=== PATIENT | female | born 1970 | race Caucasian/White ===

== ENCOUNTER 2019-11-20 11:29 | Outpatient (CLI) | payer OTHER, SELFPAY ==
--- NOTE | ~2019-11-20 | XR_ITS ---
XR cervical spine 4-5V DATE: 11/20/2019 11:56 INDICATION: Neck pain TECHNIQUE: AP, open-mouth, lateral, swimmer views COMPARISON: 08/08/2017 cervical spine FINDINGS: There is reversal of cervical curvature. C1 and C2 are normally aligned and the odontoid pr ocess is intact. There is moderate degenerative disc disease and mild retrolisthesis at C5-6. There is severe degenerative disc disease at C6-7. No fracture or dislocation or locked facet or prevertebral soft tissue swelling. IMPRESSION: Reversal of cervical curvature Moderate degenerative disease and mild retrolisthesis at C5-6 Severe degenerative disc disease at C6-7 Reviewed, dictated and finalized at location B.
== END 2019-11-20 11:30 | disposition home or self-care (01) ==
PROVIDERS: PCP Physician Assistant
DX: M54.2 Cervicalgia (principal); M53.82 Other specified dorsopathies, cervical region; M50.322 Other cervical disc degeneration at C5-C6 level; M50.323 Other cervical disc degeneration at C6-C7 level
CPT/HCPCS: 72050

== ENCOUNTER 2020-03-10 14:18 | Emergency (ER) | payer OTHER, SELFPAY ==
[2020-03-10 14:32] VITALS: BP 120/57; PULSE 99; RESP 18; TEMP 36.7; O2SAT 99
[2020-03-10] MEDS: FLUORESCEIN SOD 1 MG/STRIP (16:11)
[2020-03-10] MEDS: DACRIOSE EYE IRRIGATION 118 ML BOTTLE (16:11)
[2020-03-10] MEDS: TETRACAINE HCL 0.5% OPHTH SOLN 4 ML BTL 1 DROP (16:11)
--- NOTE | 2020-03-10 16:38 | ED.EYEPROB ---
HPI - Eye Problem General Chief complaint: Eye Problems Stated complaint: left eye pain Time Seen by Provider: 03/10/20 15:59 Source: patient History of Present Illness HPI Narrative: 49-year-old female presents to emergency department for left eye pain that she noticed this morning. Patient states he has never had this pain before in the past. She has not taken anything for the pain so far. Patient does not wear contacts, however wears reading glasses. Patient states like there is something in her eye. No fever or chills. No runny or congested nose. No hearing loss or change. No chest pain or shortness of breath. Related Data Allergies Allergy/AdvReac Type Severity Reaction Status Date / Time No Known Allergies Allergy Unverified 10/23/18 15:39 Review of Systems Review of Systems: Narrative: CONSTITUTIONAL: Denies fever, chills, or sweats. EYES: Reports left eye pain, and blurry vision. ENT: Denies rhinorrhea, congestion, sore throat, or otalgia. CARDIOVASCULAR: Denies chest pain, palpitations, or edema. RESPIRATORY: Denies cough or dyspnea. GASTROINTESTINAL: Denies abdominal pain, nausea, vomiting, or diarrhea. GENITOURINARY: Denies dysuria or hematuria. SKIN: Denies rash or itching. MUSCULOSKELETAL: Denies back pain, joint pain, or myalgia. NEUROLOGIC: Denies headache, numbness, dizziness, or weakness. PSYCHIATRIC: Denies anxiety or depression. All systems reviewed & are unremarkable except as noted in HPI and below (ROS) PMFSH Family History Family History Mother Hypertension Acute myocardial infarction Family history of cardiovascular disease Father Family history of lymphoma Grandparent Family history of throat cancer Acute myocardial infarction Family history of malignant neoplasm of ovary Other Family history of malignant neoplasm Social History Social History Smoking status: Former smoker Smoking end date: 05/15/10 Alcohol intake: current Exam Narrative: Exam Narrative: GENERAL: Well-appearing, well-nourished, and in no acute distress. HEAD: Normocephalic, atraumatic. EYES: PERRLA and EOMI. 20/20 vision of right eye, 20/25 vision of left eye ENT: Nares clear, no rhinorrhea or epistaxis. Mucous membranes moist. NECK: Supple. CHEST: Clear to auscultation. No respiratory distress. HEART: Regular rate and rhythm. No murmur heard. Normal peripheral pulses. ABDOMEN: Soft, nontender, nondistended, normal active bowel sounds. EXTREMITIES: Normal range of motion. No edema. SKIN: Warm, dry, no rash. NEURO: No focal deficits. Alert and oriented x3. PSYCH: Normal mood and affect. Eyes: Cornea: fluorescein used (Corneal abrasion at 6 o'clock position) Course Vital Signs Vital signs: Vital Signs Temperature 36.7 C 03/10/20 14:32 Pulse Rate 99 03/10/20 14:32 Respiratory Rate 18 03/10/20 14:32 Blood Pressure 120/57 L 03/10/20 14:32 Pulse Oximetry 99 03/10/20 14:32 Temperature 36.7 C 03/10/20 17:17 Pulse Rate 80 03/10/20 17:17 Respiratory Rate 18 03/10/20 17:17 Blood Pressure 124/80 03/10/20 17:17 Pulse Oximetry 99 03/10/20 17:17 MDM - Eye Problem MDM Narrative Medical decision making narrative: Tetracaine drops applied, and fluorescein dye applied to left eye. Wood's lamp used to detect corneal abrasion at 6 o'clock position. Will discharge patient with prescription for antibiotic eyedrops. Counseled patient to follow-up with her medical provider within 1 week. Return to emergency department if symptoms persist, worsen, or other concerns. Medical Records Attestation: I reviewed the patient's medical records. Discharge Plan Discharge Clinical Impression: Abrasion of cornea, left Patient Disposition: Home, Self-Care Condition: Improved Instructions: Corneal Abrasion (DC) Additional Instructions: 1. Please follow-up with your
[2020-03-10 17:17] VITALS: BP 124/80; PULSE 80; RESP 18; TEMP 36.7; O2SAT 99
== END 2020-03-10 17:18 | disposition home or self-care (01) ==
PROVIDERS: Emergency Provider Emergency Medicine; PCP Physician Assistant
DX: S05.02XA Injury of conjunctiva and corneal abrasion without foreign body, left eye, initial encounter (principal); X58.XXXA Exposure to other specified factors, initial encounter; Y93.9 Activity, unspecified
CPT/HCPCS: 99283; A9270

== ENCOUNTER 2020-11-06 10:32 | Emergency (ER) | payer OTHER, SELFPAY ==
[2020-11-06] VITALS (8 sets, daily range): BP systolic 114–155; BP diastolic 82–93; PULSE 59–79; RESP 12–74; TEMP 36.3; O2SAT 98–99
--- NOTE | ~2020-11-06 | CT_ITS ---
EXAMINATION: CT abdomen pelvis wo con DATE: 11/06/2020 12:08 INDICATION: Right flank pain TECHNIQUE: Computed tomography (CT) of the abdomen and pelvis was performed without intravenous contr ast. The dose-length product was 191.68 mGy-cm. Automated exposure control and iterative reconstructi on technique were employed. COMPARISON: CT dated 03/07/2011. FINDINGS: Lung bases are unremarkable. No significant pleural or pericardial effusion. Heart size nor mal. There is mild atherosclerosis. No lymphadenopathy. The liver, spleen, pancreas, adrenal glands and kidneys are unremarkable. Gallbladder is present. No renal/ureteral stones or hydronephrosis. No abnormal pelvic masses or fluid collections. Nonobstructi ve bowel gas pattern. IMPRESSION: 1. No acute abdominal abnormality. Reviewed, dictated and finalized at location B.
[2020-11-06 11:13] LABS: Basophils Absolute Auto 0.1 K/mm3 (0.0-0.1); Eosinophils Absolute Auto 0.1 K/mm3 (0-0.3); Eosinophils Percent Auto 1.4 % (0-4.4); Hematocrit 41.3 % (37.0-47.0); Hemoglobin 13.8 g/dL (12.0-15.0); Immature Granulocyte Absolute 0.01 K/mm3 (0.00-0.031); Immature Granulocyte Percent A 0.1 % (0-0.5); Lymphocytes Absolute Auto 2.09 K/mm3 (0.9-3.2); Lymphocytes Percent Auto 29.4 % (18.3-44.2); Mean Corpuscular HGB Conc 33.4 g/dl (32-36); Mean Corpuscular Hemoglobin 30.1 pg (26-34); Mean Corpuscular Volume 90.2 fl (80-100); Mean Platelet Volume 9.8 fl (7.4-10.4); Monocytes Absolute Auto 0.5 K/mm3 (0.1-0.6); Monocytes Percent Auto 7.2 % (2.6-8.5); Neutrophils Absolute Auto 4.3 K/mm3 (1.3-6.7); Neutrophils Percent Auto 60.9 % (45.5-73.1); Platelet Count Result 274 k/mm3 (150-375); Red Blood Count 4.58 M/mm3 (4.2-5.4); Red Cell Distribution Width 11.9 % (11.5-14.5); White Blood Count 7.1 K/mm3 (4.5-10.0)
[2020-11-06 11:19] LABS: Add Urine Microscopic? YES; Appearance Urine Clear (Clear); Bilirubin Urine 1+ (Negative); Blood Urine Negative (Negative); Calcium Oxalate Crystals Urine Many /hpf; Color Urine Yellow (Yellow); Glucose Urine UA Negative (Negative); Ketones Urine Negative (Negative); Leukocyte Esterase Ur Trace LEU/UL (Negative); Mucus Urine Few /lpf; Nitrate Urine Negative (Negative); Protein Urine 1+ mg/dL (Negative); Squamous Epithelial Cell Urine Few /hpf (Few)
[2020-11-06 11:24] LABS: Specific Grav Ur 1.051 (1.001-1.035)
[2020-11-06 11:25] LABS: Alanine Aminotransferase 16 U/L (4-35); Albumin Level 4.3 g/dL (3.5-5.1); Alkaline Phosphatase 107 U/L (38-126); Anion Gap 6 mmol/L (8-16); Aspartate Amino Transferase 36 U/L (14-36); Bilirubin,Total 0.5 mg/dL (0.2-1.3); Blood Urea Nitrogen 12 mg/dL (7-17); Calcium 9.2 mg/dL (8.4-10.2); Carbon Dioxide 25 mmol/L (22-30); Chloride 107 mmol/L (98-107); Estimated CRCL calculation 66 ml/min; Estimated Glomerular Filt Rate > 60; Glucose 108 mg/dL (65-105); Lipase 62 U/L (23-300); Potassium 4.2 mmol/L (3.4-5.0); Sodium 138 mmol/L (137-145)
--- NOTE | 2020-11-06 11:33 | ED.ABDPAIN ---
HPI - Abdominal Pain General Chief Complaint: Abdominal Pain Stated Complaint: flank pain Time Seen by Provider: 11/06/20 10:52 Source: patient Mode of arrival: wheelchair Limitations: no limitations History of Present Illness HPI narrative: Patient is a 50 year old female who presents complaining of right flank pain x 2 days, increasing pain this am. Reports nausea and vomiting. Denies diarrhea. Patient denies significant medical history. She has not taken over the counter medications for pain at this time. MD elicited complaint: flank pain Related Data Allergies Allergy/AdvReac Type Severity Reaction Status Date / Time No Known Allergies Allergy Unverified 10/23/18 15:39 Review of Systems Review of Systems: Narrative: CONSTITUTIONAL: Denies fever, chills, or sweats. EYES: Denies visual changes, redness, or discharge. ENT: Denies rhinorrhea, congestion, sore throat, or otalgia. CARDIOVASCULAR: Denies chest pain, palpitations, or edema. RESPIRATORY: Denies cough or dyspnea. GASTROINTESTINAL: Denies abdominal pain, nausea, vomiting, or diarrhea. GENITOURINARY: Reports right flank pain SKIN: Denies rash or itching. MUSCULOSKELETAL: Denies back pain, joint pain, or myalgia. NEUROLOGIC: Denies headache, numbness, dizziness, or weakness. PSYCHIATRIC: Denies anxiety or depression. PMFSH Surgical History Surgical History History of hysterectomy Family History Family History Mother Hypertension Acute myocardial infarction Family history of cardiovascular disease Father Family history of lymphoma Grandparent Family history of throat cancer Acute myocardial infarction Family history of malignant neoplasm of ovary Other Family history of malignant neoplasm Social History Social History (Updated 11/06/20 @ 11:36 by SANDEE Chaudhari) Smoking status: Former smoker Smoking end date: 05/15/10 Alcohol intake: current Alcohol use details: occasional Substance use: current Substance use type: marijuana Living arrangements: with family Comments At the time of signature, I have reviewed and agree with nursing past medical, surgical, social, and family history unless otherwise noted. Please see nursing chart for further information. There is no relevant family history pertinent to the presenting complaint. Exam Narrative: Exam Narrative: GENERAL: Well-appearing, well-nourished, and in no acute distress. HEAD: Normocephalic, atraumatic. EYES: EOMI. No redness or drainage. Conjunctiva are normal. ENT: Mucous membranes pink and moist. CHEST: No respiratory distress. Clear to auscultation. HEART: Regular rate and rhythm. No murmur appreciated. Normal peripheral pulses. GI: Soft, nontender without rebound, or guarding. No distention. : Right CVA tenderness with palpation MUSCULOSKELETAL: No bony tenderness. EXTREMITIES: Normal range of motion. No edema. SKIN: Warm, dry, no rash. NEURO: No focal deficits. Alert and oriented x3. Gait steady. PSYCH: Normal affect. No signs of depression or anxiety. Course Vital Signs Vital signs: Vital Signs Pulse Rate 60 11/06/20 10:40 Respiratory Rate 12 11/06/20 10:40 Blood Pressure 125/82 11/06/20 10:40 Pulse Oximetry 98 11/06/20 10:40 Temperature 36.3 C L 11/06/20 10:56 Pulse Rate 79 11/06/20 10:56 Respiratory Rate 14 11/06/20 10:56 Blood Pressure 114/89 11/06/20 10:56 Pulse Oximetry 99 11/06/20 10:56 MDM - Abdominal Pain Differential Diagnosis Differential diagnosis: Likely abdominal pain, calculus of kidney, diverticulitis, gastroenteritis and pancreatitis Medical Records Attestation: I reviewed the patient's medical records. Lab Data Attestation: I reviewed the patient's lab results. Result diagrams: 11/06/20 10:56 11/06/20 10:56 Labs: Lab Results 11/06/20 0
[2020-11-06] MEDS: MORPHINE SULFATE (*CRX) 4 MG/ML INJ IV PUSH (11:36)
[2020-11-06] MEDS: ONDANSETRON INJ 4 MG/2 ML VIAL IV PUSH (11:37)
[2020-11-06] MEDS: SODIUM CHLORIDE 0.9% IV 1,000 ML 999 ML IV CONT ×2 (11:37→13:05)
[2020-11-06] MEDS: KETOROLAC 30 MG/ML VIAL (*BKC) IV PUSH (13:05)
== END 2020-11-06 15:00 | disposition home or self-care (01) ==
PROVIDERS: Emergency Medicine; Emergency Provider Nurse Practitioner; PCP Physician Assistant
DX: N39.0 Urinary tract infection, site not specified (principal); Z87.891 Personal history of nicotine dependence
CPT/HCPCS: 36415; 74176; 80053; 81001; 83690; 85025; 96361; 96374; 96375; 99284; J0131; J1885; J2270; J2405; J7030

== ENCOUNTER 2021-05-21 06:37 | Outpatient (CLI) | payer OTHER, SELFPAY ==
--- NOTE | ~2021-05-21 | MR_ITS ---
EXAMINATION: MR hip LT wo con DATE: 05/21/2021 08:06 INDICATION: Left hip pain TECHNIQUE: Magnetic resonance imaging (MRI) of the left hip was performed without intravenous contra st. Sequences included full-field axial PD-weighted FS FSE and T1-weighted FSE, coronal of the pelvis with PD-weighted FS FSE, T2-weighted FSE and T1-weighted FSE, small field of view of the left hip w ith axial PD-weighted FS FSE, sagittal PD-weighted FS FSE, coronal PD-weighted FS FSE and coronal T2 weighted FSE. Additional radial T1-weighted FGR oriented orthogonal to the acetabular rim were obtai laxmi for evaluation of the labrum. COMPARISON: Left hip radiographs dated 05/17/2021 FINDINGS: Bones/labrum/cartilage: Alignment is normal. There is mild edema at the bilateral pubic bodies, left greater than right witho ut evident fracture line, cortical erosion or loss of T1 marrow fat signal to suggest a pathologic ma rrow replacing process. Otherwise normal marrow signal. No avascular necrosis. Small linear tear seen posteriorly from the 12:00 to the 11:00 position of the superolateral left acetabular labrum. Mild p artial-thickness cartilage loss with smooth chondral surface at the posterior aspect of the joint spa ce. Fluid: Symmetric physiologic amount of fluid within both hip joints. Soft tissues: Normal and symmetric muscle bulk and signal in the pelvis and visualized proximal thighs. The iliopso as, gluteal and proximal hamstring tendons are normal. The uterus is not identified and has likely be en surgically resected. Limited evaluation of visceral organs of the pelvis is otherwise unremarkable . No pathologically enlarged pelvic/inguinal lymphadenopathy. IMPRESSION: 1. Mild left hip osteoarthritis with small tear at the superolateral left acetabular labrum. 2. Nonspecific mild edema at the bilateral pubic bodies which could be related to osteitis pubis or s tress reaction without evident fracture line. Reviewed, dictated and finalized at location B. ING PROCESS SPECIALIST IMPRESSION: 1. Mild left hip osteoarthritis with small tear at the superolateral left aceta bular labrum. 2. Nonspecific mild edema at the bilateral pubic bodies which could be related to osteitis pubis or stress reaction without evident fracture line.
== END 2021-05-21 06:38 | disposition home or self-care (01) ==
PROVIDERS: PCP Physician Assistant; Visit Provider Orthopaedic Surgery
DX: M16.12 Unilateral primary osteoarthritis, left hip (principal); S73.102A Unspecified sprain of left hip, initial encounter
CPT/HCPCS: 73721